=== PATIENT | female | born 1995 | race Caucasian/White ===

== ENCOUNTER 2022-10-04 04:57 | Emergency (ER) | payer BC ==
[~2022-10-04] VITALS: Ht 162.6 cm; Wt 90.7 kg
[2022-10-04 05:10] VITALS: BP_SYST 168
--- NOTE | 2022-10-04 05:10 | NUR ---
Patient triaged and placed in waiting room. VSS and patient appears in no acute distress at this time. Awaiting available bed, and MD notified of need for MSE.
--- NOTE | 2022-10-04 05:43 | NUR ---
Patient to [address] to gown for evaluation. Side rails up.
--- NOTE | 2022-10-04 05:48 | NUR ---
GONZALO Reveles at bedside examining patient.
[2022-10-04] MEDS ORDERED: IBUPROFEN 600 MG TABLET PO ONE (06:00)
[2022-10-04] MEDS ORDERED: BUPIVACAINE /PF 0.25% 30 ML VIAL INJ ONE (06:00)
[2022-10-04] MEDS ORDERED: CLINDAMYCIN HCL 150 MG CAPSULE PO ONE (06:00)
[2022-10-04] MEDS ORDERED: ACET12.55 PO (06:05)
[2022-10-04] MEDS ORDERED: CLIN-142 PO (06:05)
[2022-10-04] MEDS ORDERED: IBUP-1969 PO (06:05)
--- NOTE | 2022-10-04 06:14 | NUR ---
Patient given written and verbal discharge instructions and verbalizes understanding. ER MD discussed with patient the results and treatment provided. Patient in stable condition. ID arm band removed. Rx of CLINDAMYCIN,IBUPROFEN,TYLENOL W/ CODEINE given. Patient educated on pain management and to follow up with PMD. Pain Scale 4/10. Opportunity for questions provided and answered. Medication side effect fact sheet provided.
[2022-10-04 06:16] VITALS: BP_SYST 153
== END 2022-10-04 06:16 | disposition home or self-care (01) ==
LOC: SED 04:57
DX: K00.6 Disturbances in tooth eruption (principal); K08.89 Other specified disorders of teeth and supporting structures; F17.200 Nicotine dependence, unspecified, uncomplicated; Z79.899 Other long term (current) drug therapy
CPT/HCPCS: 99283